=== PATIENT | female | born 1995 | race Caucasian/White ===

== ENCOUNTER 2018-05-31 21:36 | Emergency (ER) | payer OTHER ==
[2018-05-31 22:18] LABS: Urine Blood NEGATIVE (NEG); Urine Glucose NEGATIVE (NEG); Urine Protein NEGATIVE (NEG); Urine Specific Gravity >1.030 (1.005-1.030); Urine pH 6.5 (5.0-7.0)
[2018-05-31 22:55] LABS: Absolute Lymphocytes (CBC) 2.4 K/uL (0.7-4.9); Absolute Monocytes 0.6 K/uL (0.1-1.3); Absolute Neutrophil 5.9 K/uL (1.8-8.0); Basophils % 0.3 % (0-1.3); Eosinophils % 0.5 % (0-4.4); Hematocrit 31.3 % (36.0-45.0); Lymphocytes % 27.2 % (15.3-44.8); MCH 31.5 pg (27.0-35.0); MCV 91.1 fL (80-100); MPV 10.5 fL (7.6-11.3); Monocytes % 6.4 % (3.3-12.3); RBC Red Blood Cell Count 3.44 M/uL (3.86-4.86)
--- NOTE | 2018-05-31 22:56 | ER ---
Nurse's Notes [facility] Name: Christine Morgan Age: 23 yrs Sex: Female : 1995 Arrival Date: 05/31/2018 Time: 21:38 Bed 30 Private MD: None, None Diagnosis: Abdominal and pelvic pain;: 23 week/6 days Presentation: 05/31 21:56 Presenting complaint: Patient states: "ABDOMINAL CRAMPING, COMES AND GOES AWAY WHICH rv STARTED THIS NOON.". Transition of care: patient was not received from another setting of care. Onset of symptoms was May 31, 2018 at 12:00. Risk Assessment: Do you want to hurt yourself or someone else? Patient reports no desire to harm self or others. Initial Sepsis Screen: Does the patient meet any 2 criteria? No. Patient's initial sepsis screen is negative. Does the patient have a suspected source of infection? No. Patient's initial sepsis screen is negative. Care prior to arrival: None. 21:56 Method Of Arrival: Ambulatory rv 21:56 Acuity: KHAI 3 rv Triage Assessment: 22:25 General: Appears in no apparent distress. comfortable, Behavior is calm, cooperative. rv Pain: Complains of pain in abdomen. GI: Abdomen is round. 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 - Social history:: Smoking status: Patient uses tobacco products, smokes one-half pack cigarettes per day. - Ebola Screening: : Patient negative for fever greater than or equal to 101.5 degrees Fahrenheit, and additional compatible Ebola Virus Disease symptoms Patient denies exposure to infectious person Patient denies travel to an Ebola-affected area in the 21 days before illness onset. Screenin:25 Abuse screen: Denies threats or abuse. Denies injuries from another. Nutritional rv screening: No deficits noted. Tuberculosis screening: No symptoms or risk factors identified. Fall Risk None identified. Assessment: 22:50 General: Appears in no apparent distress. comfortable, Behavior is calm, cooperative. rv Pain: Complains of pain in abdomen. Neuro: Level of Consciousness is awake, alert, obeys commands, Oriented to person, place, time, situation. Cardiovascular: Capillary refill < 3 seconds. Respiratory: Airway is patent. GI: Bowel sounds present X 4 quads. Abd is soft X 4 quads Abdomen is tender to palpation in right lower quadrant. : No signs and/or symptoms were reported regarding the genitourinary system. EENT: No signs and/or symptoms were reported regarding the EENT system. Derm: Skin is intact. Vital Signs: 22:26 Weight 68.04 kg (R); rv ED Course: 21:38 Patient arrived in ED. es 21:39 None, None is Private Physician. es 21:52 Efra Ugarte MD is Attending Physician. kdr 21:57 Triage completed. rv 22:26 Arm band placed on right wrist. rv 22:26 Patient has correct armband on for positive identification. Bed in low position. Call rv light in reach. Side rails up X 1. Adult w/ patient. Pulse ox on. NIBP on. 22:34 OB Complete In Process Unspecified. EDMS 22:45 Inserted saline lock: 20 gauge in right forearm, using aseptic technique. rv 23:14 No provider procedures requiring assistance completed. IV discontinued, bleeding rv controlled, No redness/swelling at site. Pressure dressing applied. Administered Medications: 23:14 Drug: Macrobid 100 mg Route: PO; rv 23:14 Follow up: Response: Medication administered at discharge. rv Outcome: 22:55 Discharge ordered by . kdr 23:14 Discharged to home ambulatory. rv 23:14 Condition: good 23:14 Discharge instructions given to patient, Instructed on discharge instructions, follow up and referral plans. medication usage, Demonstrated understanding of instructions, follow-up care, medications, Prescriptions given X 1. 23:15 Patient left the ED. rv Signatures: Dispatcher [employer] EDMS Efra Ugarte MD MD kdr Salyer, Edna es Vicente, Ronaldo RN RN rv
--- NOTE | 2018-05-31 22:57 | EDPHYS ---
Physician Documentation [facility] Name: Christine Morgan Age: 23 yrs Sex: Female : 1995 Arrival Date: 05/31/2018 Time: 21:38 Bed 30 Private MD: None, None ED Physician Efra Ugarte HPI: 05/31 22:03 This 23 yrs old Female presents to ER via Ambulatory with complaints of kdr Abdominal Cramping, 16 weeks preg. 22:04 The patient presents with abdominal pain right lower quadrant, that is diffuse. Onset: kdr The symptoms/episode began/occurred suddenly, today, at 12:00. The symptoms do not radiate. Associated signs and symptoms: Pertinent positives: constipation, nausea, Pertinent negatives: anorexia, blood in stools, chest pain, diarrhea, dysuria, fever, headache, palpitations, shortness of breath, vaginal discharge, vomiting, vomiting blood. The symptoms are described as achy, crampy, dull, intermittent, waxing/waning, Feel like I may be having contractions. Modifying factors: The symptoms are alleviated by nothing, the symptoms are aggravated by pressure, touching the area. Severity of pain: At its worst the pain was mild in the emergency department the pain is unchanged. The patient has not experienced similar symptoms in the past. The patient has not recently seen a physician, No care to date. Prior deliveries in [place]. 22:04 No problems with prior pregnancies . 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 - Social history:: Smoking status: Patient uses tobacco products, smokes one-half pack cigarettes per day. - Ebola Screening: : Patient negative for fever greater than or equal to 101.5 degrees Fahrenheit, and additional compatible Ebola Virus Disease symptoms Patient denies exposure to infectious person Patient denies travel to an Ebola-affected area in the 21 days before illness onset. ROS: 22:04 Constitutional: Negative for fever, chills, and weight loss, Eyes: Negative for injury, kdr pain, redness, and discharge, ENT: Negative for injury, pain, and discharge, Neck: Negative for injury, pain, and swelling, Cardiovascular: Negative for chest pain, palpitations, and edema, Respiratory: Negative for shortness of breath, cough, wheezing, and pleuritic chest pain, Back: Negative for injury and pain, : Negative for injury, bleeding, discharge, and swelling, MS/Extremity: Negative for injury and deformity, Skin: Negative for injury, rash, and discoloration, Neuro: Negative for headache, weakness, numbness, tingling, and seizure activity. Psych: Negative for depression, anxiety, suicide ideation, homicidal ideation, and hallucinations, Allergy/Immunology: Negative for hives, rash, and allergies, Endocrine: Negative for neck swelling, polydipsia, polyuria, polyphagia, and marked weight changes, Hematologic/Lymphatic: Negative for swollen nodes, abnormal bleeding, and unusual bruising. 22:04 Abdomen/GI: Positive for abdominal pain, nausea, Negative for vomiting, diarrhea, abdominal cramps, abdominal distension, anorexia, dysphagia, hematemesis, black/tarry stool, rectal pain. Exam: 22:04 Constitutional: This is a well developed, well nourished patient who is awake, alert, kdr and in no acute distress. Head/Face: Normocephalic, atraumatic. ENT: Nares patent. No nasal discharge, no septal abnormalities noted. Tympanic membranes are normal and external auditory canals are clear. Oropharynx with no redness, swelling, or masses, exudates, or evidence of obstruction, uvula midline. Mucous membranes moist. Neck: Trachea midline, no thyromegaly or masses palpated, and no cervical lymphadenopathy. Supple, full range of motion without nuchal rigidity, or vertebral point tenderness. No Meningismus. Chest/axilla: Normal chest wall appearance and motion. Nontender with no deformity. No lesions are appreciated. Cardiovascular: Regular rate and rhythm with a normal S1 and S2. No gallops, murmurs, or rubs. Normal PMI, no JVD. No pulse deficits. Respiratory: Lungs have equal breath sounds bilaterally, clear to auscultation and percussion. No rales, rhonchi or wheezes noted. No increased work of breathing, no retractions or nasal flaring. Back: No spinal tenderness. No costovertebral tenderness. Full range of motion. Skin: Warm, dry with normal turgor. Normal color with no rashes, no lesions, and no evidence of cellulitis. MS/ Extremity: Pulses equal, no cyanosis. Neurovascular intact. Full, normal range of motion. Neuro: Awake and alert, GCS 15, oriented to person, place, time, and situation. Cranial nerves II-XII grossly intact. Motor strength 5/5 in all extremities. Sensory grossly intact. Cerebellar exam normal. Normal gait. Psych: Awake, alert, with orientation to person, place and time. Behavior, mood, and affect are within normal limits. 22:04 Abdomen/GI: Inspection: gravid appearance, is noted, Bowel sounds: active, all quadrants, Palpation: soft, mild abdominal tenderness, in the right lower quadrant, rebound tenderness, is not appreciated, voluntary guarding, is not appreciated, involuntary guarding, is not appreciated. Vital Signs: 22:26 Weight 68.04 kg (R); rv MDM: 22:04 Data reviewed: vital signs, nurses notes, lab test result(s), radiologic studies. kdr Counseling: I had a detailed discussion with the patient and/or guardian regarding: the historical points, exam findings, and any diagnostic results supporting the discharge/admit diagnosis, lab results, radiology results. 22:55 Patient medically screened. [facility] 05/31 21:52 Order name: Quantitative Hcg [facility] 05/31 21:52 Order name: Abo/rh Typing [facility] 05/31 21:52 Order name: Basic Metabolic Panel [facility] 05/31 21:52 Order name: CBC with Diff [facility] 05/31 22:10 Order name: Urine Dipstick--Ancillary (enter results); Complete Time: 22:44 [facility] 05/31 22:10 Order name: Urine --Ancillary (enter results); Complete Time: 22:44 [facility] 05/31 21:52 Order name: IV Saline Lock; Complete Time: 22:49 [facility] 05/31 21:52 Order name: Labs collected and sent; Complete Time: 22:49 [facility] 05/31 21:52 Order name: NPO; Complete Time: 22:24 [facility] 05/31 21:52 Order name: Urine Dipstick-Ancillary (obtain specimen); Complete Time: 22:24 [facility] 05/31 22:34 Order name: OB Complete EDMS Administered Medications: 23:14 Drug: Macrobid 100 mg Route: PO; rv 23:14 Follow up: Response: Medication administered at discharge. rv Disposition: 05/31/18 22:55 Discharged to Home. Impression: Abdominal and pelvic pain, : 23 week/6 days. - Condition is Stable. - Discharge Instructions: Abdominal Pain During , [id number]. - Prescriptions for Macrobid 100 mg Oral Capsule - take 1 capsule by ORAL route every 12 hours for 3 days; 6 capsule. - Medication Reconciliation Form, Thank You Letter form. - Follow up: Private Physician; When: 2 - 3 days; Reason: If symptoms return, Further diagnostic work-up, Recheck today's complaints, Continuance of care, Re-evaluation by your physician. - Problem is new. - Symptoms have improved. Signatures: Dispatcher [employer] EDMS Efra Ugarte MD MD kdr Leoncio Shelby RN RN rv Corrections: (The following items were deleted from the chart) 22:10 22:03 Transvaginal Study (Probe)+[email or web address] ordered. EDMS EDMS 22:34 22:10 OB Limited ordered. EDMS EDMS 23:15 22:55 05/31/2018 22:55 Discharged to Home. Impression: Abdominal and pelvic pain; rv : 23 week/6 days. Condition is Stable. Forms are Medication Reconciliation Form, Thank You Letter, Antibiotic Education, Prescription Opioid Use. Follow up: Private Physician; When: 2 - 3 days; Reason: If symptoms return, Further diagnostic work-up, Recheck today's complaints, Continuance of care, Re-evaluation by your physician. Problem is new. Symptoms have improved. kdr
[2018-05-31] MEDS ORDERED: NITROFURAN MACRO 100 MG CAP PO ONE (23:03)
[2018-06-01 00:25] LABS: BUN Blood Urea Nitrogen 8 mg/dL (7-18); Bicarbonate 20 mmol/L (21-32); Glucose Level 76 mg/dL (74-106); HCG, Quantitative 14016 mIU/mL (1-3); Potassium 3.8 mmol/L (3.5-5.1); Sodium Level 137 mmol/L (136-145)
--- NOTE | 2018-06-01 11:32 | RAD REPORT ---
EXAM DESCRIPTION: US - OB Complete - 05/31/2018 10:34 pm CLINICAL HISTORY: , abdominal pain, right lower quadrant pain Preliminary findings were provided at the time of the study. COMPARISON: None. FINDINGS: A single cephalic presenting gestation is identified. The 4 chamber heart view has a vik l appearance. Heart rate normal. The intracranial contents and spine are grossly normal. A lef t-sided stomach bubble is seen with normal appearing bladder and kidneys. The 3 vessel cord, inserti on site and anterior abdominal wall have normal appearance. No abnormalities are identifiable. measurements are as follows: BPD:5.80 Centimeters 23 weeks 5 days HC:21.6 a Centimeters 23 weeks 5 days AC:19.16 Centimeters 23 weeks 6 days HL:3.90 Centimeters 23 weeks 6 days FL:4.24 Centimeters 23 weeks 6 days The estimated gestational age (EGA) is 23 weeks 6 days with an NO of 09/21/2018. ratios are n ormal or within acceptable limits. The placenta is grade 0, posterior in location. No low-lying or pl acenta previa. The amniotic fluid volume is normal. Cervical canal is long and closed. Maternal adnexa assessment was limited. No gross abnormality seen. No free fluid identified. IMPRESSION: 1. Single, cephalic gestation with an EGA of 23 weeks 6 days and an NO of the 9. 2. No abnormalities are identifiable. ratios are normal or within acceptable limits. 3. Grade 0, posterior placenta with no low-lying or placenta previa. 4. Amniotic fluid volume is normal.
== END 2018-05-31 23:15 | disposition home or self-care (01) ==
LOC: ER 21:36
DX: R10.2 Pelvic and perineal pain (principal); O99.332 Smoking (tobacco) complicating pregnancy, second trimester; F17.210 Nicotine dependence, cigarettes, uncomplicated; Z3A.23 23 weeks gestation of pregnancy
CPT/HCPCS: 36415; 76805; 80048; 81003; 81025; 84702; 85025; 86900; 86901; 99284

== ENCOUNTER 2018-09-12 10:40 | Inpatient (IN) | payer OTHER ==
[2018-09-12] MEDS ORDERED: BUTORPHANOL 1 MG/ML INJ IV PRN (11:48)
[2018-09-12] MEDS ORDERED: METHYLERGONOVINE 0.2MG/ML AMP IM PRN (11:48)
[2018-09-12] MEDS ORDERED: PROMETHAZINE 25 MG/ML VIAL IV PRN ×2 (11:48)
[2018-09-12] MEDS ORDERED: Ringers Lactate 1,000 ML IV PRN (11:48)
[2018-09-12] MEDS ORDERED: PENICILLIN G POT 5 MU/100 ML BAG IV ONE ×2 (11:50→12:00)
[2018-09-12 11:54] LABS: RPR Titer ND
[2018-09-12 11:57] LABS: Urine Appearance CLOUDY; Urine Bilirubin NEGATIVE (NEG); Urine Blood NEGATIVE (NEG); Urine Color YELLOW; Urine Glucose NEGATIVE (NEG); Urine Protein NEGATIVE (NEG); Urine pH 6.5 (5.0-7.0)
[2018-09-12] MEDS ORDERED: Ringers Lactate 1,000 ML IV SCH (12:00)
[2018-09-12 12:08] LABS: Absolute Lymphocytes (CBC) 2.2 K/uL (0.7-4.9); Absolute Monocytes 0.5 K/uL (0.1-1.3); Absolute Neutrophil 5.1 K/uL (1.8-8.0); Basophils % 0.2 % (0-1.3); Eosinophils % 0.2 % (0-4.4); Hematocrit 24.6 % (36.0-45.0); Lymphocytes % 28.5 % (15.3-44.8); MPV 9.7 fL (7.6-11.3); Monocytes % 6.2 % (3.3-12.3); RBC Red Blood Cell Count 3.19 M/uL (3.86-4.86)
[2018-09-12 12:13] LABS: Glucose Level 79 mg/dL (74-106)
[2018-09-12 12:16] LABS: Barbiturates NEGATIVE (NEGATIVE); Benzodiazepines NEGATIVE (NEGATIVE); Cocaine NEGATIVE (NEGATIVE); METHAMPHETAM NEGATIVE (NEGATIVE); Methadone NEGATIVE (NEGATIVE); Opiates NEGATIVE (NEGATIVE); Phencyclidine NEGATIVE (NEGATIVE); THC Cannibis POSITIVE (NEGATIVE)
[2018-09-12] MEDS ORDERED: OXYTOCIN/LR 20 UNIT/1,000 ML BAG IV ONE (12:33)
[2018-09-12 12:50] LABS: Urine Bacteria <20 /HPF (<20); Urine Culture Reflex Order NOT NEEDED; Urine Mucus 2+ /HPF (NONE SEEN); Urine RBC <5 /HPF (NONE SEEN)
--- NOTE | 2018-09-12 13:08 | RAD REPORT ---
EXAM DESCRIPTION: US - OB Complete - 09/12/2018 12:56 pm CLINICAL HISTORY: no care in labor age. COMPARISON: OB Complete dated 05/31/2018 FINDINGS: A single cephalic presenting gestation is identified. Heart rate normal. The intracranial contents and spine are grossly normal. A normal stomach bubble is noted. A nor mal fluid-filled urinary bladder seen without pelviectasis. Umbilical cord was poorly visualize d due to positioning. Suboptimal four-chamber view the heart due to positioning. Estimate d weight is 7 pounds 1 ounce +/-1 pound 1 ounce. measurements are as follows: BPD:9.2 Centimeters 37 weeks 1 day HC:33.0 Centimeters 37 weeks 4 days AC:33.4 Centimeters 37 weeks 2 days HL:6.6 Centimeters 38 weeks 0 days FL:7.4 Centimeters 37 weeks 6 days The estimated gestational age (EGA) is 37 weeks 4 days with an NO of09/29/2018. The placenta is grade 2-3, fundal posterior in location. No placenta previa. The amniotic fluid index is 5.8 cm, with largest pocket 2.2 cm. The maternal adnexa show no worrisome findings. IMPRESSION: 1. Single, cephalic gestation with an EGA of 37 weeks 4 days and an NO of the 9. 2. No gross abnormalities are identifiable. Estimated weight 7 pounds 1 ounce +/-1 pound 1 ounce. 3. Grade 2-3, fundal posterior placenta. 4. Amniotic fluid index is5.8 cm, with largest pocket2.2 cm -- considered mildly low..
[2018-09-12 13:27] VITALS: BMI 27.4
[2018-09-12] MEDS ORDERED: FENTANYL/BUPIVACAINE/NS/PF 200 MCG/100 ML BAG EP PRN (14:24)
[2018-09-12] MEDS ORDERED: FENTANYL CITR 100 MCG/2 ML IV ONE (14:24)
[2018-09-12] MEDS ORDERED: BUPIVACAINE 0.25% PF 30 ML VIAL IV ONE (14:25)
[2018-09-12] MEDS ORDERED: PENICILLIN 2.5 MU in NA CHLORIDE 0.9% 100 ML IV SCH (16:00)
[2018-09-12] MEDS ORDERED: ACETAMINOPHEN 500 MG TAB PO PRN (19:56)
[2018-09-12] MEDS ORDERED: ONDANSETRON 4 MG (ODT) TAB PO PRN (19:56)
[2018-09-12] MEDS ORDERED: BISACODYL 10 MG RECTAL SUPP RECT PRN (19:56)
[2018-09-12] MEDS ORDERED: DOCUSATE NA/SENNA CONC 1 TAB PO PRN (19:56)
[2018-09-12] MEDS ORDERED: METHYLERGONOVINE 0.2 MG TAB PO PRN (19:56)
[2018-09-12] MEDS ORDERED: Tdap (Diph,Pertuss(Acell),Tet Vac) 0.5 ML SYR IMVAC ONE (19:56)
[2018-09-12 21:27] LABS: RPR (Rapid Plasma Reagin) NON-REACT (NON-REACT)
--- NOTE | 2018-09-12 22:54 | P.OP ---
Date of Service: 09/12/18 Findings and Operative Technique Patient delivered a viable female in cephalic presentation on 09/12/18 at 15:55. Infant was delivered and then nose and mouth were suctioned with a suction bulb and cord was clamped and cut. Infant was then placed on the mother' s abdomen for skin to skin bonding. Cord blood was obtained. Placenta was then delivered with gentle traction at 16:00 and was noted to be intact. Fundus was then found to be firm. EBL was 350cc. Perineum was noted to be intact. APGARS were 8/9. Weight was found to be 6 lb 13 ounces. First stage of labor was 6 hours. Second stage was 5 minutes. Both mom and baby are doing well.
[2018-09-13] MEDS: IBUPROFEN 200 MG TAB PO PRN ×2 (01:00→14:12)
--- NOTE | 2018-09-13 03:27 | HP ---
Date of Admission: 09/12/2018 Christine is a 23-year-old, 3, para 2-0-0-2 who presents at 38 weeks and 5 days gestation with no care in active labor. She had spontaneous rupture of membranes prior to arrival in [facility] and Delivery. She states she did not obtain care due to not having insurance. Upon her p resentation to Labor and Delivery, a full set of labs were ordered and a ultrasound as well as a urine drug screen. Drug screen is positive for marijuana. Labs indicate that she has sev ere anemia with a hemoglobin of 8.3. She is Rh positive, HIV negative. Ultrasound reveals cephalic presentation, infant measuring 7 pounds 1 ounce, HELDER is 5.8. She denies any vaginal bleeding. She r eports irregular contractions. Past Medical History: She denies. Past Surgical History: Patient denies. Ob History: Two prior vaginal births. Social History: She is with the father of the baby. Denies drug use. She reports tobacco use, carlos bill had stopped during the . Denies alcohol use. Family History: Noncontributory. Physical Examination: Vital Signs: On presentation, vital signs are 126/85, pulse of 116, respirations 18. She is afebril e. General: She is resting in bed, moderate pain. Head and Neck: Normocephalic, atraumatic. Heart: Regular rate and rhythm. Lungs: Symmetric, nonlabored breathing. Abdomen: Gravid. Extremities: Bilateral lower extremities, no clubbing, cyanosis, or edema. Vaginal: Normal external female genitalia. 2 cm dilated, 70% effaced. Clear fluid noted within the vaginal vault. -3 station. Assessment And Plan: Christine is a 23-year-old, 3, para 2-0-0-2 at 38 weeks and 5 days gesta tion who presents with spontaneous rupture of membranes with no care, lack of GBS status. P christiano is to begin Pitocin for labor augmentation. Continuous -maternal monitoring. Epidural plac ement at patient's request. Anticipate vaginal . SANDRA Voice ID: [id number]
[2018-09-13 18:48] VITALS: BP 140/77; TEMP 98.3
[2018-09-14 16:42] LABS: HBsAG Nonreactive (Nonreactive)
--- NOTE | 2018-09-23 20:43 | P.DS ---
Admission Date: 09/12/18 Discharge Date: 09/13/18 Disposition: ROUTINE DISCHARGE Discharge Condition: GOOD Brief History of Present Illness: see h&p Hospital Course: Pop did well following delivery of her baby. She is bonding well with her . Her bleeding is mild. She is ambulating without difficulty. She is tolerating a regular diet. She is voiding well. No bowel movements. Positive flatus. Vital Signs/Physical Exam: Temp Pulse Resp BP Pulse Ox 98.3 F 85 16 140/77 09/13/18 16:00 09/13/18 16:00 09/13/18 16:00 09/13/18 16:00 General: Alert, In no apparent distress, Oriented x3 HEENT: Atraumatic Neck: Supple Respiratory: Normal air movement Cardiovascular: No edema, Normal pulses Gastrointestinal: Soft and benign (fundus firm palpable below umbilicus) Neurological: Normal gait, Normal speech Laboratory Data at Discharge: WBC 7.8 K/uL (4.3-10.9) 09/12/18 11:36 Hgb 8.3 g/dL (12.0-15.0) L 09/12/18 11:36 Hct 24.4 % (36.0-45.0) L 09/13/18 04:17 Plt Count 142 K/uL (152-406) L 09/12/18 11:36 Glucose 79 mg/dL (74-106) 09/12/18 11:36 Home Medications: NK [No Home Meds] 09/12/18 Diet: Regular Activity: No lifting more than 10 lbs
== END 2018-09-13 18:45 | disposition home or self-care (01) | DRG 807 ==
LOC: L&D 10:40 → 2ND-WC 11:13
PROVIDERS: ADMIT Student in an Organized Health Care Education/Training Program; ATTEND Student in an Organized Health Care Education/Training Program
PROC: 10E0XZZ Delivery of Products of Conception, External Approach (ICD-10-PCS; principal; 2018-09-12)
DX: O99.02 Anemia complicating childbirth (principal); Z37.0 Single live birth; Z3A.38 38 weeks gestation of pregnancy
CPT/HCPCS: 36415; 76805; 80307; 81001; 82947; 85014; 85025; 86592; 86762; 86901; 87340; 88307; G0433; J0595; J2590; J3010